=== PATIENT | female | born 1975 | race Caucasian/White ===

== ENCOUNTER → 2019-02-15 | Outpatient (CLI) | payer OTHER ==
[~2019-02-15] MED LIST: CLARITIN10 MG PO; FLEXERIL PO; FLOMAX0.4 MG PO; FLONASE 0.05%50 MCG NASAL; HYDROCODON-ACE1 EAC7 PO; HYDROCODONE-APA1 TA1 PO; LEVOTHYROXIN0.112 M1 PO; NAPROSYN500 MG PO; NEURONTIN 300300 M1 PO; NEXIUM 24HR20 MG PO; NEXIUM40 MG PO; NORCO 5-325 TA1 EACH PO; PROAIR HFA8.5 GM INH; SINGULAIR 10 MG10 M1 PO; XANAX 0.5 MG0.5 MG PO; ZOFRAN ODT4 MG PO
== END ==
LOC: M.MRI 02-01 11:04
DX: M47.26 Other spondylosis with radiculopathy, lumbar region (principal); M50.122 Cervical disc disorder at C5-C6 level with radiculopathy; M51.24 Other intervertebral disc displacement, thoracic region; M47.814 Spondylosis without myelopathy or radiculopathy, thoracic region; M43.22 Fusion of spine, cervical region; M25.78 Osteophyte, vertebrae; Z88.8 Allergy status to other drugs, medicaments and biological substances; Z98.890 Other specified postprocedural states

== ENCOUNTER → 2020-08-30 | Outpatient (CLI) | payer OTHER | LOC: M.MRI 15:58 | PROVIDERS: ATTEND Family Medicine | DX: S83.221A Peripheral tear of medial meniscus, current injury, right knee, initial encounter (principal); M25.461 Effusion, right knee; X58.XXXA Exposure to other specified factors, initial encounter; Y93.89 Activity, other specified; Y92.89 Other specified places as the place of occurrence of the external cause; Y99.8 Other external cause status ==